=== PATIENT | male | born 1970 | race Two or more races ===

== ENCOUNTER 2021-04-03 22:07 | Inpatient (IN) | payer BC ==
[~2021-04-03] VITALS: Ht 152.4 cm; Wt 54.4 kg
[2021-04-03 22:56] LABS: BASOPHILS % 0.7 % (0.0-2.0); EOSINOPHILS % 1.3 % (0.0-5.0); HEMATOCRIT. 47.7 % (42.0-52.0); HEMOGLOBIN. 15.4 g/dL (14.0-18.0); LYMPHOCYTES % 49.5 % (20.0-50.0); MEAN CORPUSCULAR HEMOGLOBIN 27.5 pg (28.0-32.0); MONOCYTES % 9.3 % (2.0-8.0); NEUTROPHILS % 39.2 % (40.0-76.0); RED BLOOD CELL COUNT 5.61 mill/uL (4.7-6.1); RED CELL DISTRIBUTION WIDTH 14.9 % (11.6-14.6)
[2021-04-03 23:00] LABS: BG BASE EXCESS -8.9 mmol/L (-2.0-2.0); BG CARBOXYHEMOGLOBIN 0.6 % (0.5-1.5); BG DEOXYHEMOGLOBIN 5.6 % (0.0-5.0); BG FRACTION INSPIRED OXYGEN 100; BG HCO3 ACT 18.7 mmol/L (22.0-26.0); BG METHEMOGLOBIN 0.3 % (0.0-1.5); BG OXYGEN SATURATION 94.3 % (92.0-98.5); BG OXYHEMOGLOBIN 93.5 % (94.0-97.0); BG PCO2 46.7 mmHg (35.0-45.0); BG PO2 81.6 mmHg (75.0-100.0); BG SAMPLE SITE RIGHT BRACHIAL; BG TOTAL HEMOGLOBIN 14.2 g/dL (12.0-18.0); BG VENT MODE MASK - BIPAP
[2021-04-03 23:02] LABS: CHLORIDE 102 mEq/L (98-107)
[2021-04-03 23:09] LABS: D-DIMER 3.09 mg/L FEU (<0.50); INR 1.1; PROTHROMBIN TIME 11.9 sec (9.6-11.0)
[2021-04-03] MEDS ORDERED: CEFTRIAXONE 1 G PREMIX 50 ML IV SCH (23:15)
[2021-04-03] MEDS ORDERED: MORPHINE SULFATE 2 MG/ML CPJ (NOT FOR IM USE) IV SCH (23:15)
[2021-04-03] MEDS ORDERED: FENTANYL CITRATE/PF 50MCG/ML 2ML VIAL IV ONE (23:30)
[2021-04-03] MEDS ORDERED: ONDANSETRON HCL 4MG/2ML INJ IV ONE (23:30)
[2021-04-03] MEDS ORDERED: PROPOFOL 10MG/ML 100ML 100 ML IV ONE (23:30)
[2021-04-03] MEDS ORDERED: DEXT 5%/LACTATED RINGERS 1,000 ML IV ONE (23:45)
[2021-04-03 23:52] LABS: MEAN PLATELET VOLUME 9.8 fl (7.4-10.4); PLATELET 185 x1000/uL (130-400)
[2021-04-04] VITALS (21 sets, daily range): BP systolic 77–175; BP diastolic 44–84
[2021-04-04] MEDS ORDERED: AZITHROMYCIN 500 MG in DEXT 5% WATER 250 ML IV SCH
[2021-04-04 00:18] LABS: CLARITY URINE CLEAR (CLEAR); COLOR URINE YELLOW (YELLOW); KETONES URINE NEGATIVE (NEGATIVE); LEUKOCYTE ESTERASE URINE NEGATIVE (NEGATIVE); NITRITE URINE NEGATIVE (NEGATIVE); OCCULT BLOOD URINE NEGATIVE (NEGATIVE); PROTEIN URINE 2+ (NEGATIVE); SPECIFIC GRAVITY URINE 1.022 (1.005-1.030); UROBILINOGEN URINE 0.2 E.U./dL (0.2-1.0)
[2021-04-04 00:31] LABS: *AMPHETAMINES SCREEN URINE NEGATIVE (NEGATIVE); *BARBITURATES SCREEN URINE NEGATIVE (NEGATIVE); *BENZODIAZEPINES SCREEN URINE NEGATIVE (NEGATIVE); *COCAINE SCREEN URINE NEGATIVE (NEGATIVE); CANNABINOID URINE SCREEN NEGATIVE (NEGATIVE); OPIATES URINE SCREEN NEGATIVE (NEGATIVE)
[2021-04-04 00:32] LABS: METHADONE URINE SCREEN NEGATIVE (NEGATIVE); PHENCYCLIDINE URINE SCREEN NEGATIVE (NEGATIVE)
[2021-04-04] MEDS ORDERED: SODIUM CHLORIDE 0.9% 500 ML IV ONE (01:15)
[2021-04-04] MEDS ORDERED: PROPOFOL 10MG/ML 100ML 100 ML IV ONE ×3 (02:45→10:45)
[2021-04-04] MEDS ORDERED: LORAZEPAM 2MG/ML CPJ IV PRN (03:15)
[2021-04-04] MEDS ORDERED: NOREPINEPHRINE 8MG/250ML PMX 250 ML IV PRN ×2 (03:15→14:45)
[2021-04-04 04:40] LABS: BG BASE EXCESS -9.6 mmol/L (-2.0-2.0); BG CARBOXYHEMOGLOBIN 0.5 % (0.5-1.5); BG DEOXYHEMOGLOBIN 3.2 % (0.0-5.0); BG FRACTION INSPIRED OXYGEN 100; BG HCO3 ACT 17.2 mmol/L (22.0-26.0); BG METHEMOGLOBIN 0.1 % (0.0-1.5); BG OXYGEN SATURATION 96.8 % (92.0-98.5); BG OXYHEMOGLOBIN 96.2 % (94.0-97.0); BG PCO2 40.6 mmHg (35.0-45.0); BG PH 7.245 (7.350-7.450); BG PO2 104.2 mmHg (75.0-100.0); BG SAMPLE SITE RIGHT BRACHIAL; BG TOTAL HEMOGLOBIN 13.7 g/dL (12.0-18.0); BG VENT MODE VENT - AC
[2021-04-04] MEDS ORDERED: ETOMIDATE 2MG/ML 10ML VIAL IV ONE (08:03)
[2021-04-04] MEDS ORDERED: SUCCINYLCHOLINE CHLORIDE 200MG/10ML IV ONE (08:03)
[2021-04-04 11:09] LABS: BG BASE EXCESS -2.3 mmol/L (-2.0-2.0); BG CARBOXYHEMOGLOBIN 0.6 % (0.5-1.5); BG DEOXYHEMOGLOBIN 1.8 % (0.0-5.0); BG FRACTION INSPIRED OXYGEN 90; BG METHEMOGLOBIN 0.1 % (0.0-1.5); BG OXYGEN SATURATION 98.2 % (92.0-98.5); BG OXYHEMOGLOBIN 97.5 % (94.0-97.0); BG PCO2 41.3 mmHg (35.0-45.0); BG PH 7.363 (7.350-7.450); BG PO2 120.6 mmHg (75.0-100.0); BG SAMPLE SITE RIGHT RADIAL; BG TOTAL HEMOGLOBIN 14.6 g/dL (12.0-18.0); BG VENT MODE VENT - AC
[2021-04-04] MEDS ORDERED: MIDAZOLAM HCL 100 MG in SODIUM CHLORIDE 0.9% 80 ML IV PRN (11:30)
[2021-04-04] MEDS ORDERED: ACETAMINOPHEN 325MG TABLET PO PRN (11:30)
[2021-04-04] MEDS ORDERED: ONDANSETRON HCL 4MG/2ML INJ IV PRN (11:30)
[2021-04-04] MEDS ORDERED: FENTANYL CITRATE/PF 2,500 MCG in SODIUM CHLORIDE 0.9% 200 ML IV PRN ×3 (11:30→14:27)
[2021-04-04] MEDS ORDERED: DEXTROSE 50% WATER 50ML SYRINGE IV PRN (11:30)
[2021-04-04] MEDS ORDERED: MORPHINE SULFATE 2 MG/ML CPJ (NOT FOR IM USE) IV PRN (11:30)
[2021-04-04] MEDS ORDERED: LORAZEPAM 0.5MG TABLET PO PRN (11:30)
[2021-04-04] MEDS ORDERED: DOCUSATE SODIUM 100MG CAPSULE PO PRN (11:30)
[2021-04-04] MEDS ORDERED: IPRATROPIUM/ALBUTEROL 0.5-3(2.5)MG/3ML NEB NEB PRN (11:30)
[2021-04-04] MEDS ORDERED: HYDROCODONE/ACETAMINOPHEN 5/325MG TABLET PO PRN (11:30)
[2021-04-04] MEDS ORDERED: ACETAMINOPHEN 650MG SUPP PR PRN (11:30)
[2021-04-04] MEDS ORDERED: CLONIDINE 0.1MG TABLET PO PRN (11:30)
[2021-04-04] MEDS ORDERED: GUAIFENESIN 200MG/10ML SUGAR FREE UDC PO PRN (11:30)
[2021-04-04] MEDS ORDERED: DIPHENHYDRAMINE 50MG/ML VIAL IV PRN (11:30)
[2021-04-04] MEDS ORDERED: NA PHOS,M-B/NA PHOS,DI-BA ENEMA 118ML PR PRN (11:30)
[2021-04-04] MEDS ORDERED: MAGNESIUM/ALUMINUM HYDROXIDE/SIMETHICONE 30ML UDC PO PRN (11:30)
[2021-04-04] MEDS ORDERED: BLOOD SUGAR DIAGNOSTIC STRIP TEST SCH (13:00)
[2021-04-04] MEDS ORDERED: INSULIN LISPRO 100 UNITS/ML SUBCUT SCH (13:20)
[2021-04-04] MEDS ORDERED: VANCOMYCIN 1500MG in DEXTROSE 5% WATER 250ML IV SCH (13:30)
[2021-04-04] MEDS: PANTOPRAZOLE SODIUM 40 MG/VIAL IV SCH (13:55)
[2021-04-04] MEDS: DEXAMETHASONE 10 MG/ML VIAL IV SCH (13:56)
[2021-04-04] MEDS ORDERED: PIPERACILLIN/TAZOBACTAM 3.375 G in DEXT 5% WATER 100 ML IV SCH (14:00)
[2021-04-04] MEDS: MIDAZOLAM HCL 100 MG in SODIUM CHLORIDE 0.9% 80 ML IV PRN ×2 (14:23→15:45)
[2021-04-04] MEDS: IPRATROPIUM/ALBUTEROL 0.5-3(2.5)MG/3ML NEB NEB SCH ×2 (14:37→20:24)
[2021-04-04 15:41] LABS: CREATINE KINASE MB FRACTION 12.5 ng/mL (0.5-3.6)
[2021-04-04 16:45] LABS: HEMATOCRIT. 40.9 % (42.0-52.0); HEMOGLOBIN. 13.7 g/dL (14.0-18.0); MEAN CORPUSCULAR HEMOGLOBIN 27.4 pg (28.0-32.0); MEAN CORPUSCULAR VOLUME 81.8 fL (80.0-94.0); MEAN PLATELET VOLUME 9.2 fl (7.4-10.4); PLATELET 214 x1000/uL (130-400); RED CELL DISTRIBUTION WIDTH 14.3 % (11.6-14.6)
[2021-04-04 17:12] LABS: PLATELET ESTIMATE NORMAL
[2021-04-04] MEDS ORDERED: VANCOMYCIN 1 G PREMIX 200 ML IV SCH (22:00)
[2021-04-04] MEDS: PIPERACILLIN/TAZOBACTAM 3.375 G in DEXT 5% WATER 100 ML IV SCH (22:21)
[2021-04-04] MEDS: VANCOMYCIN 1 G PREMIX 200 ML IV SCH (22:22)
[2021-04-04] MEDS: NOREPINEPHRINE 8 MG in DEXTROSE 5% WATER 250 ML IV PRN (22:24)
[2021-04-05] VITALS (92 sets, daily range): BP systolic 82–156; BP diastolic 45–94
[2021-04-05] MEDS: NOREPINEPHRINE 8 MG in DEXTROSE 5% WATER 250 ML IV PRN (00:10)
[2021-04-05] MEDS: BLOOD SUGAR DIAGNOSTIC STRIP TEST SCH ×4 (00:25→20:36)
[2021-04-05] MEDS: INSULIN LISPRO 100 UNITS/ML SUBCUT SCH ×5 (00:26→20:37)
[2021-04-05 01:17] LABS: CREATINE KINASE MB FRACTION 4.3 ng/mL (0.5-3.6)
[2021-04-05] MEDS: IPRATROPIUM/ALBUTEROL 0.5-3(2.5)MG/3ML NEB NEB SCH ×4 (01:53→20:51)
[2021-04-05] MEDS: PIPERACILLIN/TAZOBACTAM 3.375 G in DEXT 5% WATER 100 ML IV SCH ×4 (02:48→20:34)
[2021-04-05] MEDS ORDERED: IOHEXOL-350 100 ML BOTTLE ONE (03:50)
[2021-04-05 05:49] LABS: CHLORIDE 110 mEq/L (98-107)
[2021-04-05 05:57] LABS: HDL CHOLESTEROL 36 mg/dL (40-59); HEMATOCRIT. 37.9 % (42.0-52.0); HEMOGLOBIN. 12.7 g/dL (14.0-18.0); LDL CHOLESTEROL 50 mg/dL (5-100); MEAN CORPUSCULAR HEMOGLOBIN 27.4 pg (28.0-32.0); MEAN CORPUSCULAR VOLUME 81.6 fL (80.0-94.0); MEAN PLATELET VOLUME 10.3 fl (7.4-10.4); PLATELET 192 x1000/uL (130-400); RED BLOOD CELL COUNT 4.64 mill/uL (4.7-6.1); RED CELL DISTRIBUTION WIDTH 14.3 % (11.6-14.6)
[2021-04-05 05:58] LABS: T4 FREE 1.17 ng/dL (0.76-1.46)
[2021-04-05] MEDS: VANCOMYCIN 1 G PREMIX 200 ML IV SCH ×2 (06:36→13:06)
[2021-04-05 08:07] LABS: BG BASE EXCESS -0.7 mmol/L (-2.0-2.0); BG CARBOXYHEMOGLOBIN 0.3 % (0.5-1.5); BG DEOXYHEMOGLOBIN 1.6 % (0.0-5.0); BG FRACTION INSPIRED OXYGEN 50; BG HCO3 ACT 20.7 mmol/L (22.0-26.0); BG METHEMOGLOBIN 0.3 % (0.0-1.5); BG OXYGEN SATURATION 98.4 % (92.0-98.5); BG OXYHEMOGLOBIN 97.8 % (94.0-97.0); BG PCO2 25.5 mmHg (35.0-45.0); BG PH 7.528 (7.350-7.450); BG PO2 152.5 mmHg (75.0-100.0); BG SAMPLE SITE RIGHT BRACHIAL; BG TOTAL HEMOGLOBIN 12.4 g/dL (12.0-18.0); BG TOTAL RESPIRATORY RATE 22 b/min; BG VENT MODE VENT - AC
[2021-04-05] MEDS: PANTOPRAZOLE SODIUM 40 MG/VIAL IV SCH (08:37)
[2021-04-05] MEDS: DEXAMETHASONE 10 MG/ML VIAL IV SCH (08:38)
[2021-04-05] MEDS: ASPIRIN 81MG EC TABLET PO SCH (08:38)
[2021-04-05] MEDS ORDERED: POTASSIUM CHLORIDE 20MEQ/PACKET PO NR (09:15)
[2021-04-05 10:48] LABS: PLATELET ESTIMATE NORMAL
[2021-04-05] MEDS ORDERED: ENOXAPARIN 100MG/ML SYR SUBCUT SCH (12:00)
[2021-04-05] MEDS: SODIUM CHLORIDE 0.45% 1,000 ML IV SCH (12:09)
[2021-04-05 13:41] LABS: BG BASE EXCESS -3.7 mmol/L (-2.0-2.0); BG CARBOXYHEMOGLOBIN 0.3 % (0.5-1.5); BG DEOXYHEMOGLOBIN 2.9 % (0.0-5.0); BG HCO3 ACT 20.3 mmol/L (22.0-26.0); BG METHEMOGLOBIN 0.3 % (0.0-1.5); BG OXYGEN SATURATION 97.1 % (92.0-98.5); BG OXYHEMOGLOBIN 96.5 % (94.0-97.0); BG PCO2 33.8 mmHg (35.0-45.0); BG PH 7.397 (7.350-7.450); BG PO2 98.9 mmHg (75.0-100.0); BG SAMPLE SITE RIGHT BRACHIAL; BG VENT MODE VENT - CPAP
[2021-04-05] MEDS: ENOXAPARIN 30MG/0.3ML SYR SUBCUT SCH ×2 (14:32→20:35)
[2021-04-05] MEDS: MIDODRINE HCL 5MG TABLET PO SCH ×2 (14:45→17:53)
[2021-04-05 16:16] LABS: BG CARBOXYHEMOGLOBIN 0.7 % (0.5-1.5); BG HCO3 ACT 22.2 mmol/L (22.0-26.0); BG METHEMOGLOBIN 0.1 % (0.0-1.5); BG OXYGEN SATURATION 92.9 % (92.0-98.5); BG OXYHEMOGLOBIN 92.2 % (94.0-97.0); BG PCO2 36.4 mmHg (35.0-45.0); BG PH 7.404 (7.350-7.450); BG PO2 66.5 mmHg (75.0-100.0); BG SAMPLE SITE RIGHT BRACHIAL; BG TOTAL HEMOGLOBIN 14.2 g/dL (12.0-18.0); BG VENT MODE COOL AEROSOL
[2021-04-05] MEDS: CLOTRIMAZOLE/BETAMETHASONE 1/0.05% CREAM 15GM TOP SCH ×2 (18:27→20:36)
[2021-04-05 19:21] LABS: BG DEOXYHEMOGLOBIN 3.6 % (0.0-5.0); BG FRACTION INSPIRED OXYGEN 55; BG HCO3 ACT 21.9 mmol/L (22.0-26.0); BG METHEMOGLOBIN 0.3 % (0.0-1.5); BG OXYGEN SATURATION 96.4 % (92.0-98.5); BG OXYHEMOGLOBIN 96.1 % (94.0-97.0); BG PCO2 34.8 mmHg (35.0-45.0); BG PH 7.417 (7.350-7.450); BG PO2 87.5 mmHg (75.0-100.0); BG SAMPLE SITE RIGHT RADIAL; BG TOTAL HEMOGLOBIN 13.1 g/dL (12.0-18.0); BG VENT MODE MASK - BIPAP
[2021-04-05] MEDS: VANCOMYCIN 1500MG in DEXTROSE 5% WATER 250ML IV SCH (22:19)
[2021-04-06] VITALS (98 sets, daily range): BP systolic 81–141; BP diastolic 43–84
[2021-04-06] MEDS: PIPERACILLIN/TAZOBACTAM 3.375 G in DEXT 5% WATER 100 ML IV SCH ×4 (03:00→20:48)
[2021-04-06 05:49] LABS: CHLORIDE 107 mEq/L (98-107)
[2021-04-06 05:56] LABS: TOTAL IRON BINDING CAPACITY 265 ug/dL (250-450)
[2021-04-06 06:09] LABS: HEMATOCRIT. 34.7 % (42.0-52.0); HEMOGLOBIN. 11.8 g/dL (14.0-18.0); MEAN CORPUSCULAR HEMOGLOBIN 27.5 pg (28.0-32.0); MEAN CORPUSCULAR VOLUME 80.8 fL (80.0-94.0); MEAN PLATELET VOLUME 10.7 fl (7.4-10.4); PLATELET 151 x1000/uL (130-400); RED CELL DISTRIBUTION WIDTH 14.5 % (11.6-14.6)
[2021-04-06] MEDS: BLOOD SUGAR DIAGNOSTIC STRIP TEST SCH ×4 (06:11→22:00)
[2021-04-06] MEDS: VANCOMYCIN 1500MG in DEXTROSE 5% WATER 250ML IV SCH (06:11)
[2021-04-06] MEDS: INSULIN LISPRO 100 UNITS/ML SUBCUT SCH ×4 (06:11→21:00)
[2021-04-06 06:24] LABS: VITAMIN B12 SERUM 362 pg/mL (211-911)
[2021-04-06] MEDS: IPRATROPIUM/ALBUTEROL 0.5-3(2.5)MG/3ML NEB NEB SCH ×3 (08:13→21:04)
[2021-04-06] MEDS: ASPIRIN 81MG EC TABLET PO SCH (09:00)
[2021-04-06] MEDS: MIDODRINE HCL 5MG TABLET PO SCH ×3 (09:00→16:47)
[2021-04-06 09:07] LABS: BG BASE EXCESS -1.5 mmol/L (-2.0-2.0); BG DEOXYHEMOGLOBIN 1.1 % (0.0-5.0); BG FRACTION INSPIRED OXYGEN 55; BG METHEMOGLOBIN 0.3 % (0.0-1.5); BG OXYGEN SATURATION 98.9 % (92.0-98.5); BG OXYHEMOGLOBIN 98.6 % (94.0-97.0); BG PCO2 33.1 mmHg (35.0-45.0); BG PH 7.441 (7.350-7.450); BG SAMPLE SITE LEFT BRACHIAL; BG TOTAL HEMOGLOBIN 11.9 g/dL (12.0-18.0); BG TOTAL RESPIRATORY RATE 36 b/min; BG VENT MODE MASK - BIPAP
[2021-04-06] MEDS: PANTOPRAZOLE SODIUM 40 MG/VIAL IV SCH (09:27)
[2021-04-06] MEDS: CLOTRIMAZOLE/BETAMETHASONE 1/0.05% CREAM 15GM TOP SCH (09:27)
[2021-04-06] MEDS: DEXAMETHASONE 10 MG/ML VIAL IV SCH (09:27)
[2021-04-06] MEDS: SODIUM CHLORIDE 0.45% 1,000 ML IV SCH ×2 (09:28→23:07)
[2021-04-06] MEDS: ENOXAPARIN 30MG/0.3ML SYR SUBCUT SCH (09:28)
[2021-04-06] MEDS ORDERED: POTASSIUM CHLORIDE 20MEQ TABLET SR PO NR (09:30)
[2021-04-06] MEDS: FERROUS SULFATE 325MG TABLET PO SCH ×2 (11:01→16:47)
[2021-04-06] MEDS: VANCOMYCIN 1 G PREMIX 200 ML IV SCH ×2 (14:54→22:52)
[2021-04-06 15:58] LABS: PLATELET ESTIMATE NORMAL
[2021-04-06] MEDS: METHYLPREDNISOLONE SOD SUCC 40 MG/ML VIAL IV SCH (16:47)
[2021-04-06] MEDS: NOREPINEPHRINE 8 MG in DEXTROSE 5% WATER 250 ML IV PRN (16:54)
[2021-04-06] MEDS: ENOXAPARIN 60MG/0.6ML SYR SUBCUT SCH (18:45)
[2021-04-07] VITALS (85 sets, daily range): BP systolic 57–146; BP diastolic 27–80
[2021-04-07] MEDS: ACETYLCYSTEINE 100MG/ML 10% VIAL 4ML INH SCH ×2 (00:54→08:11)
[2021-04-07] MEDS: IPRATROPIUM/ALBUTEROL 0.5-3(2.5)MG/3ML NEB NEB SCH ×2 (00:55→08:11)
[2021-04-07] MEDS: METHYLPREDNISOLONE SOD SUCC 40 MG/ML VIAL IV SCH (03:09)
[2021-04-07] MEDS: PIPERACILLIN/TAZOBACTAM 3.375 G in DEXT 5% WATER 100 ML IV SCH ×4 (03:10→21:54)
[2021-04-07] MEDS: ENOXAPARIN 60MG/0.6ML SYR SUBCUT SCH ×2 (05:38→17:21)
[2021-04-07] MEDS: VANCOMYCIN 1 G PREMIX 200 ML IV SCH ×2 (05:39→13:48)
[2021-04-07 05:42] LABS: HEMATOCRIT. 33.7 % (42.0-52.0); HEMOGLOBIN. 11.2 g/dL (14.0-18.0); MEAN CORPUSCULAR HEMOGLOBIN 27.1 pg (28.0-32.0); MEAN CORPUSCULAR VOLUME 81.4 fL (80.0-94.0); MEAN PLATELET VOLUME 10.5 fl (7.4-10.4); PLATELET 140 x1000/uL (130-400); RED BLOOD CELL COUNT 4.14 mill/uL (4.7-6.1); RED CELL DISTRIBUTION WIDTH 14.5 % (11.6-14.6)
[2021-04-07 05:53] LABS: CHLORIDE 105 mEq/L (98-107)
[2021-04-07] MEDS: INSULIN LISPRO 100 UNITS/ML SUBCUT SCH ×4 (06:32→21:00)
[2021-04-07] MEDS: BLOOD SUGAR DIAGNOSTIC STRIP TEST SCH ×4 (06:40→21:53)
[2021-04-07 06:57] LABS: PLATELET ESTIMATE NORMAL
[2021-04-07 07:54] LABS: BG BASE EXCESS -1.3 mmol/L (-2.0-2.0); BG CARBOXYHEMOGLOBIN 0.3 % (0.5-1.5); BG DEOXYHEMOGLOBIN 2.3 % (0.0-5.0); BG FRACTION INSPIRED OXYGEN 28; BG HCO3 ACT 22.6 mmol/L (22.0-26.0); BG METHEMOGLOBIN 0.3 % (0.0-1.5); BG OXYGEN SATURATION 97.7 % (92.0-98.5); BG OXYHEMOGLOBIN 97.1 % (94.0-97.0); BG PCO2 35.1 mmHg (35.0-45.0); BG PH 7.427 (7.350-7.450); BG PO2 109.5 mmHg (75.0-100.0); BG SAMPLE SITE RIGHT BRACHIAL; BG TOTAL HEMOGLOBIN 11.7 g/dL (12.0-18.0); BG VENT MODE NASAL CANNULA
[2021-04-07] MEDS: ASPIRIN 81MG EC TABLET PO SCH (08:22)
[2021-04-07] MEDS: MIDODRINE HCL 5MG TABLET PO SCH ×3 (08:22→17:21)
[2021-04-07] MEDS: PANTOPRAZOLE SODIUM 40 MG/VIAL IV SCH (08:22)
[2021-04-07] MEDS: FERROUS SULFATE 325MG TABLET PO SCH ×2 (08:22→17:20)
[2021-04-07] MEDS ORDERED: ENOXAPARIN 40MG/0.4ML SYR SUBCUT SCH (09:00)
[2021-04-07] MEDS ORDERED: VANCOMYCIN 750 MG PREMIX 150 ML IV SCH (18:00)
[2021-04-07] MEDS: SODIUM CHLORIDE 0.45% 1,000 ML IV SCH (21:53)
[2021-04-08] VITALS (17 sets, daily range): BP systolic 85–127; BP diastolic 44–78
[2021-04-08] MEDS: PIPERACILLIN/TAZOBACTAM 3.375 G in DEXT 5% WATER 100 ML IV SCH ×4 (03:07→20:50)
[2021-04-08 04:50] LABS: HEMATOCRIT. 32.2 % (42.0-52.0); HEMOGLOBIN. 10.7 g/dL (14.0-18.0); MEAN CORPUSCULAR HEMOGLOBIN 27.2 pg (28.0-32.0); MEAN CORPUSCULAR VOLUME 82.1 fL (80.0-94.0); MEAN PLATELET VOLUME 10.4 fl (7.4-10.4); PLATELET 137 x1000/uL (130-400); RED BLOOD CELL COUNT 3.92 mill/uL (4.7-6.1); RED CELL DISTRIBUTION WIDTH 14.6 % (11.6-14.6)
[2021-04-08 04:55] LABS: CHLORIDE 107 mEq/L (98-107)
[2021-04-08] MEDS: ENOXAPARIN 60MG/0.6ML SYR SUBCUT SCH ×2 (05:28→17:58)
[2021-04-08] MEDS: BLOOD SUGAR DIAGNOSTIC STRIP TEST SCH ×5 (05:30→20:33)
[2021-04-08] MEDS: INSULIN LISPRO 100 UNITS/ML SUBCUT SCH ×4 (06:28→20:50)
[2021-04-08] MEDS: ASPIRIN 81MG EC TABLET PO SCH (08:26)
[2021-04-08] MEDS: MIDODRINE HCL 5MG TABLET PO SCH ×3 (08:26→16:59)
[2021-04-08] MEDS: FERROUS SULFATE 325MG TABLET PO SCH ×2 (08:26→16:59)
[2021-04-08] MEDS: METHYLPREDNISOLONE SOD SUCC 40 MG/ML VIAL IV SCH (08:27)
[2021-04-08] MEDS: PANTOPRAZOLE SODIUM 40 MG/VIAL IV SCH (08:27)
[2021-04-08 10:04] LABS: NUCLEATED RED BLOOD CELLS 1 /100 WBC; PLATELET ESTIMATE NORMAL
[2021-04-08 15:34] LABS: BG BASE EXCESS -0.9 mmol/L (-2.0-2.0); BG CARBOXYHEMOGLOBIN 0.4 % (0.5-1.5); BG DEOXYHEMOGLOBIN 7.8 % (0.0-5.0); BG HCO3 ACT 23.8 mmol/L (22.0-26.0); BG OXYGEN SATURATION 92.2 % (92.0-98.5); BG OXYHEMOGLOBIN 91.8 % (94.0-97.0); BG PCO2 39.6 mmHg (35.0-45.0); BG PH 7.396 (7.350-7.450); BG PO2 63.6 mmHg (75.0-100.0); BG SAMPLE SITE RIGHT RADIAL; BG TOTAL HEMOGLOBIN 12.2 g/dL (12.0-18.0); BG VENT MODE ROOM AIR
[2021-04-09 00:24] VITALS: BP 98/50
[2021-04-09] MEDS: PIPERACILLIN/TAZOBACTAM 3.375 G in DEXT 5% WATER 100 ML IV SCH ×3 (03:24→16:15)
[2021-04-09 04:30] VITALS: BP 98/41
[2021-04-09] MEDS: ENOXAPARIN 60MG/0.6ML SYR SUBCUT SCH ×2 (05:42→16:59)
[2021-04-09] MEDS: BLOOD SUGAR DIAGNOSTIC STRIP TEST SCH ×3 (06:26→16:58)
[2021-04-09 07:41] LABS: HEMATOCRIT. 33.2 % (42.0-52.0); HEMOGLOBIN. 11.1 g/dL (14.0-18.0); MEAN CORPUSCULAR HEMOGLOBIN 27.3 pg (28.0-32.0); MEAN CORPUSCULAR VOLUME 81.3 fL (80.0-94.0); MEAN PLATELET VOLUME 10.8 fl (7.4-10.4); PLATELET 154 x1000/uL (130-400); RED BLOOD CELL COUNT 4.08 mill/uL (4.7-6.1); RED CELL DISTRIBUTION WIDTH 14.3 % (11.6-14.6)
[2021-04-09 07:46] LABS: CHLORIDE 106 mEq/L (98-107)
[2021-04-09] MEDS: INSULIN LISPRO 100 UNITS/ML SUBCUT SCH ×3 (07:50→17:14)
[2021-04-09 08:00] VITALS: BP 97/51
[2021-04-09] MEDS: PANTOPRAZOLE SODIUM 40 MG/VIAL IV SCH (08:24)
[2021-04-09] MEDS: METHYLPREDNISOLONE SOD SUCC 40 MG/ML VIAL IV SCH (08:24)
[2021-04-09] MEDS: FERROUS SULFATE 325MG TABLET PO SCH ×2 (08:25→16:58)
[2021-04-09] MEDS: MIDODRINE HCL 5MG TABLET PO SCH ×3 (08:25→16:59)
[2021-04-09] MEDS: ASPIRIN 81MG EC TABLET PO SCH (08:25)
[2021-04-09 12:00] VITALS: BP 101/49
[2021-04-09 14:43] LABS: PLATELET ESTIMATE NORMAL
[2021-04-09 16:00] VITALS: BP 91/47
[2021-04-09 18:53] VITALS: BP 91/47
== END 2021-04-09 20:15 | disposition home or self-care (01) | DRG 871 ==
LOC: ER 22:07 → EDBEDREQ 22:28 → MICUNO 04-04 00:13 → EDBEDREQTM 04-04 00:27 → EDBEDREQ 04-04 00:27 → EDBEDREQDT 04-04 00:27 → EDBEDREQSVC 04-04 00:27 → SUPCPDRO 04-04 11:17 → ENRESERV 04-04 15:28 → MICUNO 04-05 14:41 → 6WST 04-08 11:49
PROVIDERS: ADMIT Internal Medicine; ATTEND Internal Medicine
PROC: 5A09357 Assistance with Respiratory Ventilation, Less than 24 Consecutive Hours, Continuous Positive Airway Pressure (ICD-10-PCS; 2021-04-03)
PROC: 5A1945Z Respiratory Ventilation, 24-96 Consecutive Hours (ICD-10-PCS; principal; 2021-04-04)
PROC: 02H633Z Insertion of Infusion Device into Right Atrium, Percutaneous Approach (ICD-10-PCS; 2021-04-04)
PROC: B548ZZA Ultrasonography of Superior Vena Cava, Guidance (ICD-10-PCS; 2021-04-04)
PROC: 0BH17EZ Insertion of Endotracheal Airway into Trachea, Via Natural or Artificial Opening (ICD-10-PCS; 2021-04-04)
PROC: 5A09357 Assistance with Respiratory Ventilation, Less than 24 Consecutive Hours, Continuous Positive Airway Pressure (ICD-10-PCS; 2021-04-05)
DX: A41.9 Sepsis, unspecified organism (principal); J69.0 Pneumonitis due to inhalation of food and vomit; I21.4 Non-ST elevation (NSTEMI) myocardial infarction; J96.01 Acute respiratory failure with hypoxia; I50.33 Acute on chronic diastolic (congestive) heart failure; E87.2 Acidosis; E87.1 Hypo-osmolality and hyponatremia; N43.3 Hydrocele, unspecified; E87.6 Hypokalemia; E83.51 Hypocalcemia; E80.6 Other disorders of bilirubin metabolism; Z60.2 Problems related to living alone; D50.9 Iron deficiency anemia, unspecified; I35.0 Nonrheumatic aortic (valve) stenosis; E11.65 Type 2 diabetes mellitus with hyperglycemia; F10.21 Alcohol dependence, in remission; Z20.822 Contact with and (suspected) exposure to COVID-19; Z87.891 Personal history of nicotine dependence; Z78.1 Physical restraint status; Z79.899 Other long term (current) drug therapy; Z79.82 Long term (current) use of aspirin; Z85.71 Personal history of Hodgkin lymphoma; Z90.81 Acquired absence of spleen; Z92.3 Personal history of irradiation; Z92.21 Personal history of antineoplastic chemotherapy
CPT/HCPCS: 36415; 36600; 71045; 71275; 74176; 76700; 76870; 76937; 80048; 80053; 80061; 80202; 80305; 81003; 82375; 82550; 82553; 82607; 82805; 82962; 83036; 83540; 83550; 83605; 83880; 84145; 84153; 84439; 84443; 84484; 85025; 85044; 85379; 86850; 86900; 87070; 87426; 92610; 93005; 93306; 93970; 93976; 94002; 94003; 94640; 94660; 97110; 97163; 97530; 99291; A6261; C1725; C9113; J0330; J0456; J0696; J1100; J1650; J1815; J2060; J2250; J2270; J2405; J2543; J2704; J2920; J3010; J3370; J3490; J7040; J7050; J7060; J7121; J7608; Q9967; U0003; U0005; A4315; G0103

== ENCOUNTER 2023-03-01 07:59 | Inpatient (IN) | payer BC, OTHER ==
[~2023-03-01] VITALS: Ht 160 cm; Wt 50.0 kg
[~2023-03-01 07:59] MED LIST: ASPI-1497 MT; BLOO1KIT74 TP; FLAS1EAC2 TP; LANC1COM2 MC; METF-414 MT
[2023-03-01] MEDS ORDERED: METHYLPREDNISOLONE SOD SUCC 125 MG/2 ML VIAL IV STA (08:01)
[2023-03-01] MEDS ORDERED: MAGNESIUM 2 G PREMIX 50 ML IV STA (08:01)
[2023-03-01] MEDS ORDERED: ALBUTEROL (0.083%) 2.5MG/3ML NEB HHN STA (08:01)
[2023-03-01] MEDS ORDERED: IPRATROPIUM BROMIDE (0.02%) 0.5MG/2.5ML NEB HHN STA (08:01)
[2023-03-01 08:48] LABS: EOSINOPHILS % 0.8 % (0.0-5.0); HEMATOCRIT. 42.6 % (42.0-52.0); HEMOGLOBIN. 14.1 g/dL (14.0-18.0); LYMPHOCYTES % 23.1 % (20.0-50.0); MEAN CORPUSCULAR HEMOGLOBIN 28.5 pg (28.0-32.0); MEAN CORPUSCULAR VOLUME 86.1 fL (80.0-94.0); MEAN PLATELET VOLUME 10.5 fl (7.4-10.4); MONOCYTES % 8.8 % (2.0-8.0); NEUTROPHILS % 66.3 % (40.0-76.0); PLATELET 197 x1000/uL (130-400); RED BLOOD CELL COUNT 4.94 mill/uL (4.7-6.1); RED CELL DISTRIBUTION WIDTH 14.9 % (11.6-14.6)
[2023-03-01 08:55] LABS: BG BASE EXCESS -0.9 mmol/L (-2.0-2.0); BG CARBOXYHEMOGLOBIN 1.3 % (0.5-1.5); BG DEOXYHEMOGLOBIN 6.6 % (0.0-5.0); BG FRACTION INSPIRED OXYGEN 21; BG HCO3 ACT 23.6 mmol/L (22.0-26.0); BG METHEMOGLOBIN 0.3 % (0.0-1.5); BG OXYGEN SATURATION 93.3 % (92.0-98.5); BG OXYHEMOGLOBIN 91.8 % (94.0-97.0); BG PCO2 38.6 mmHg (35.0-45.0); BG PH 7.404 (7.350-7.450); BG SAMPLE SITE RIGHT BRACHIAL; BG TOTAL HEMOGLOBIN 14.1 g/dL (12.0-18.0); BG VENT MODE ROOM AIR
[2023-03-01 09:05] LABS: CHLORIDE 103 mEq/L (98-107)
[2023-03-01] MEDS ORDERED: AZITHROMYCIN 500MG/250ML 250 ML IV ONE (09:15)
[2023-03-01] MEDS ORDERED: CEFTRIAXONE 1GM PREMIX 50 ML IV ONE (09:15)
[2023-03-01] MEDS ORDERED: IPRATROPIUM BROMIDE (0.02%) 0.5MG/2.5ML NEB ONE (10:05)
[2023-03-01] MEDS ORDERED: ENALAPRIL 2.5MG/2ML VIAL 2ML IV ONE (10:15)
[2023-03-01] MEDS ORDERED: ENALAPRIL 1.25MG/ML VIAL 1ML IV NR (10:15)
[2023-03-01] MEDS ORDERED: FUROSEMIDE 40MG/4ML VIAL IVP ONE (10:15)
[2023-03-01] MEDS ORDERED: CEFTRIAXONE 1GM PREMIX 50 ML IV NR (12:00)
[2023-03-01] MEDS ORDERED: IPRATROPIUM/ALBUTEROL 0.5-3(2.5)MG/3ML NEB HHN PRN (12:30)
[2023-03-01] MEDS ORDERED: LORAZEPAM 0.5MG TABLET PO PRN (12:30)
[2023-03-01] MEDS ORDERED: DEXTROSE 50% WATER 50ML SYRINGE IV PRN ×3 (12:30→19:45)
[2023-03-01] MEDS ORDERED: BLOOD SUGAR DIAGNOSTIC STRIP TEST SCH (13:00)
[2023-03-01] MEDS ORDERED: ASPIRIN 81MG TABLET PO NR (13:00)
[2023-03-01] MEDS: SPIRONOLACTONE 25MG TABLET PO SCH (14:27)
[2023-03-01] MEDS: BLOOD SUGAR DIAGNOSTIC STRIP TEST SCH ×3 (14:28→21:20)
[2023-03-01] MEDS: THIAMINE HCL 100MG TABLET PO SCH (14:28)
[2023-03-01] MEDS: MULTIVITAMINS,THER W-MINERALS TABLET PO SCH (14:28)
[2023-03-01] MEDS: LISINOPRIL 10MG TABLET PO SCH (14:28)
[2023-03-01] MEDS: FOLIC ACID 1MG TABLET PO SCH (14:28)
[2023-03-01] MEDS: ENOXAPARIN 40MG/0.4ML SYR SUBCUT SCH (14:29)
[2023-03-01 16:15] LABS: CREATINE KINASE MB FRACTION 2.8 ng/mL (0.5-3.6)
[2023-03-01] MEDS: FUROSEMIDE 40MG/4ML VIAL IV SCH (17:48)
[2023-03-01] MEDS: IPRATROPIUM/ALBUTEROL 0.5-3(2.5)MG/3ML NEB HHN SCH (20:48)
[2023-03-01] MEDS ORDERED: FAMOTIDINE 20MG TABLET PO SCH (21:00)
[2023-03-01] MEDS: INSULIN LISPRO 100 UNITS/ML SUBCUT SCH (21:00)
[2023-03-01] MEDS ORDERED: CARVEDILOL 3.125 MG TABLET PO SCH (21:00)
[2023-03-01] MEDS ORDERED: CARVEDILOL 6.25 MG TABLET PO SCH (21:03)
[2023-03-01 21:12] LABS: CREATINE KINASE MB FRACTION 2.6 ng/mL (0.5-3.6)
[2023-03-01] MEDS: FAMOTIDINE 20MG TABLET PO SCH (21:20)
[2023-03-01 21:26] LABS: CLARITY URINE CLEAR (CLEAR); COLOR URINE YELLOW (YELLOW); KETONES URINE NEGATIVE (NEGATIVE); LEUKOCYTE ESTERASE URINE NEGATIVE (NEGATIVE); NITRITE URINE NEGATIVE (NEGATIVE); OCCULT BLOOD URINE NEGATIVE (NEGATIVE); PROTEIN URINE NEGATIVE (NEGATIVE); SPECIFIC GRAVITY URINE 1.008 (1.005-1.030); UROBILINOGEN URINE 0.2 E.U./dL (0.2-1.0)
[2023-03-01 21:39] LABS: *AMPHETAMINES SCREEN URINE NEGATIVE (NEGATIVE); *BARBITURATES SCREEN URINE NEGATIVE (NEGATIVE); *BENZODIAZEPINES SCREEN URINE NEGATIVE (NEGATIVE); *COCAINE SCREEN URINE NEGATIVE (NEGATIVE); CANNABINOID URINE SCREEN NEGATIVE (NEGATIVE); METHADONE URINE SCREEN NEGATIVE (NEGATIVE); OPIATES URINE SCREEN NEGATIVE (NEGATIVE); PHENCYCLIDINE URINE SCREEN NEGATIVE (NEGATIVE)
[2023-03-02] MEDS: IPRATROPIUM/ALBUTEROL 0.5-3(2.5)MG/3ML NEB HHN SCH ×2 (00:45→21:15)
[2023-03-02 04:15] LABS: BASOPHILS % 0.4 % (0.0-2.0); EOSINOPHILS % 0.1 % (0.0-5.0); HEMATOCRIT. 41.6 % (42.0-52.0); LYMPHOCYTES % 7.9 % (20.0-50.0); MEAN CORPUSCULAR HEMOGLOBIN 28.4 pg (28.0-32.0); MEAN CORPUSCULAR VOLUME 84.5 fL (80.0-94.0); MEAN PLATELET VOLUME 9.2 fl (7.4-10.4); MONOCYTES % 4.6 % (2.0-8.0); PLATELET 191 x1000/uL (130-400); RED BLOOD CELL COUNT 4.92 mill/uL (4.7-6.1); RED CELL DISTRIBUTION WIDTH 15.1 % (11.6-14.6)
[2023-03-02 04:32] LABS: CHLORIDE 102 mEq/L (98-107)
[2023-03-02 04:48] LABS: HDL CHOLESTEROL 36 mg/dL (40-59); LDL CHOLESTEROL 79 mg/dL (5-100); T4 FREE 1.19 ng/dL (0.76-1.46)
[2023-03-02 05:15] VITALS: BP 115/61
[2023-03-02 05:23] VITALS: BP 115/61
[2023-03-02] MEDS ORDERED: FURO20TA4 MT (05:26)
[2023-03-02] MEDS ORDERED: CARV3.1242 MT (05:26)
[2023-03-02] MEDS: FUROSEMIDE 40MG/4ML VIAL IV SCH ×2 (05:50→18:00)
[2023-03-02] MEDS: BLOOD SUGAR DIAGNOSTIC STRIP TEST SCH ×4 (06:35→20:25)
[2023-03-02] MEDS: INSULIN LISPRO 100 UNITS/ML SUBCUT SCH ×4 (07:52→20:25)
[2023-03-02 08:00] VITALS: BP_SYST 120; BP_DIAS 50; BP_DIAS 57
[2023-03-02] MEDS: THIAMINE HCL 100MG TABLET PO SCH (08:40)
[2023-03-02] MEDS: MULTIVITAMINS,THER W-MINERALS TABLET PO SCH (08:40)
[2023-03-02] MEDS: SPIRONOLACTONE 25MG TABLET PO SCH (08:41)
[2023-03-02] MEDS: FAMOTIDINE 20MG TABLET PO SCH ×2 (08:41→21:11)
[2023-03-02] MEDS: FOLIC ACID 1MG TABLET PO SCH (08:41)
[2023-03-02] MEDS: LISINOPRIL 10MG TABLET PO SCH (08:42)
[2023-03-02] MEDS ORDERED: AZITHROMYCIN 500MG/250ML 250 ML IV SCH (09:00)
[2023-03-02] MEDS ORDERED: AZITHROMYCIN 500MG in DEXTROSE 5% WATER 250ML IV SCH (11:00)
[2023-03-02 12:00] VITALS: BP 98/52
[2023-03-02] MEDS ORDERED: VANCOMYCIN 1G PREMIX 200 ML IV NR (12:00)
[2023-03-02] MEDS: ENOXAPARIN 40MG/0.4ML SYR SUBCUT SCH (12:46)
[2023-03-02] MEDS: PIPERACILLIN/TAZOBACTAM 3.375 G in DEXTROSE 5% WATER 50 ML IV SCH ×2 (14:38→21:11)
[2023-03-02 16:00] VITALS: BP 94/50
[2023-03-02 20:00] VITALS: BP 94/47
[2023-03-02] MEDS ORDERED: CARVEDILOL 3.125 MG TABLET PO SCH (21:00)
[2023-03-03] VITALS: BP 89/49
[2023-03-03] MEDS: VANCOMYCIN 500MG PREMIX 100 ML IV SCH ×4 (00:20→23:34)
[2023-03-03] MEDS: IPRATROPIUM/ALBUTEROL 0.5-3(2.5)MG/3ML NEB HHN SCH ×4 (01:28→21:33)
[2023-03-03 04:00] VITALS: BP 97/47
[2023-03-03 05:45] LABS: BASOPHILS % 0.6 % (0.0-2.0); EOSINOPHILS % 0.1 % (0.0-5.0); HEMATOCRIT. 39.1 % (42.0-52.0); HEMOGLOBIN. 12.9 g/dL (14.0-18.0); LYMPHOCYTES % 10.2 % (20.0-50.0); MEAN CORPUSCULAR HEMOGLOBIN 28.1 pg (28.0-32.0); MEAN CORPUSCULAR VOLUME 85.1 fL (80.0-94.0); MEAN PLATELET VOLUME 10.7 fl (7.4-10.4); MONOCYTES % 8.5 % (2.0-8.0); NEUTROPHILS % 80.6 % (40.0-76.0); PLATELET 137 x1000/uL (130-400); RED BLOOD CELL COUNT 4.59 mill/uL (4.7-6.1); RED CELL DISTRIBUTION WIDTH 14.8 % (11.6-14.6)
[2023-03-03] MEDS: PIPERACILLIN/TAZOBACTAM 3.375 G in DEXTROSE 5% WATER 50 ML IV SCH ×3 (05:47→21:03)
[2023-03-03] MEDS: FUROSEMIDE 40MG/4ML VIAL IV SCH ×2 (05:47→18:00)
[2023-03-03 06:08] LABS: CHLORIDE 101 mEq/L (98-107)
[2023-03-03] MEDS: BLOOD SUGAR DIAGNOSTIC STRIP TEST SCH ×4 (06:55→20:15)
[2023-03-03] MEDS: INSULIN LISPRO 100 UNITS/ML SUBCUT SCH ×4 (07:44→21:03)
[2023-03-03 08:02] VITALS: BP 95/49
[2023-03-03] MEDS: LISINOPRIL 10MG TABLET PO SCH (09:00)
[2023-03-03] MEDS: FOLIC ACID 1MG TABLET PO SCH (09:14)
[2023-03-03] MEDS: MULTIVITAMINS,THER W-MINERALS TABLET PO SCH (09:14)
[2023-03-03] MEDS: FAMOTIDINE 20MG TABLET PO SCH ×2 (09:14→21:03)
[2023-03-03] MEDS: SPIRONOLACTONE 25MG TABLET PO SCH (09:14)
[2023-03-03] MEDS: THIAMINE HCL 100MG TABLET PO SCH (09:14)
[2023-03-03 12:00] VITALS: BP 109/59
[2023-03-03] MEDS: ENOXAPARIN 40MG/0.4ML SYR SUBCUT SCH (12:42)
[2023-03-03 16:00] VITALS: BP 88/43
[2023-03-03 19:59] VITALS: BP 123/54
[2023-03-04] VITALS (7 sets, daily range): BP systolic 93–110; BP diastolic 47–68
[2023-03-04] MEDS: IPRATROPIUM/ALBUTEROL 0.5-3(2.5)MG/3ML NEB HHN SCH ×4 (01:53→21:02)
[2023-03-04] MEDS: FUROSEMIDE 40MG/4ML VIAL IV SCH ×2 (05:31→17:23)
[2023-03-04] MEDS: PIPERACILLIN/TAZOBACTAM 3.375 G in DEXTROSE 5% WATER 50 ML IV SCH ×2 (05:32→13:02)
[2023-03-04 06:34] LABS: CHLORIDE 98 mEq/L (98-107)
[2023-03-04 06:42] LABS: VANCOMYCIN TROUGH 21.5 ug/mL (5.0-10.0)
[2023-03-04 07:06] LABS: BASOPHILS % 0.9 % (0.0-2.0); EOSINOPHILS % 1.4 % (0.0-5.0); HEMATOCRIT. 40.4 % (42.0-52.0); HEMOGLOBIN. 13.5 g/dL (14.0-18.0); LYMPHOCYTES % 21.2 % (20.0-50.0); MEAN CORPUSCULAR HEMOGLOBIN 28.3 pg (28.0-32.0); MEAN CORPUSCULAR VOLUME 84.9 fL (80.0-94.0); MEAN PLATELET VOLUME 11.1 fl (7.4-10.4); NEUTROPHILS % 65.5 % (40.0-76.0); PLATELET 149 x1000/uL (130-400); RED BLOOD CELL COUNT 4.76 mill/uL (4.7-6.1); RED CELL DISTRIBUTION WIDTH 14.8 % (11.6-14.6)
[2023-03-04] MEDS: BLOOD SUGAR DIAGNOSTIC STRIP TEST SCH ×4 (07:40→21:00)
[2023-03-04] MEDS: INSULIN LISPRO 100 UNITS/ML SUBCUT SCH ×4 (08:10→21:49)
[2023-03-04] MEDS: LISINOPRIL 10MG TABLET PO SCH (09:00)
[2023-03-04] MEDS: SPIRONOLACTONE 25MG TABLET PO SCH (09:04)
[2023-03-04] MEDS: VANCOMYCIN 500MG PREMIX 100 ML IV SCH (09:04)
[2023-03-04] MEDS: FAMOTIDINE 20MG TABLET PO SCH ×2 (09:04→21:49)
[2023-03-04] MEDS: FOLIC ACID 1MG TABLET PO SCH (09:04)
[2023-03-04] MEDS: THIAMINE HCL 100MG TABLET PO SCH (09:04)
[2023-03-04] MEDS: MULTIVITAMINS,THER W-MINERALS TABLET PO SCH (09:05)
[2023-03-04] MEDS: ENOXAPARIN 40MG/0.4ML SYR SUBCUT SCH (12:53)
[2023-03-04] MEDS ORDERED: VANCOMYCIN 500MG PREMIX 100 ML IV SCH (20:00)
[2023-03-05] VITALS: BP 95/46
[2023-03-05] MEDS: IPRATROPIUM/ALBUTEROL 0.5-3(2.5)MG/3ML NEB HHN SCH ×2 (02:13→09:20)
[2023-03-05 04:00] VITALS: BP 93/41
[2023-03-05] MEDS: FUROSEMIDE 40MG/4ML VIAL IV SCH (05:13)
[2023-03-05 07:39] LABS: CHLORIDE 97 mEq/L (98-107)
[2023-03-05] MEDS: BLOOD SUGAR DIAGNOSTIC STRIP TEST SCH (07:40)
[2023-03-05] MEDS: INSULIN LISPRO 100 UNITS/ML SUBCUT SCH (08:10)
[2023-03-05 08:50] LABS: BASOPHILS % 1.1 % (0.0-2.0); HEMATOCRIT. 44.1 % (42.0-52.0); HEMOGLOBIN. 14.7 g/dL (14.0-18.0); LYMPHOCYTES % 19.1 % (20.0-50.0); MEAN CORPUSCULAR HEMOGLOBIN 28.4 pg (28.0-32.0); MEAN CORPUSCULAR VOLUME 85.1 fL (80.0-94.0); MEAN PLATELET VOLUME 11.1 fl (7.4-10.4); MONOCYTES % 14.5 % (2.0-8.0); NEUTROPHILS % 64.3 % (40.0-76.0); PLATELET 165 x1000/uL (130-400); RED BLOOD CELL COUNT 5.18 mill/uL (4.7-6.1); RED CELL DISTRIBUTION WIDTH 14.7 % (11.6-14.6)
[2023-03-05] MEDS: SPIRONOLACTONE 25MG TABLET PO SCH (09:00)
[2023-03-05] MEDS: THIAMINE HCL 100MG TABLET PO SCH (09:46)
[2023-03-05] MEDS: FAMOTIDINE 20MG TABLET PO SCH (09:46)
[2023-03-05] MEDS: FOLIC ACID 1MG TABLET PO SCH (09:46)
[2023-03-05] MEDS: MULTIVITAMINS,THER W-MINERALS TABLET PO SCH (09:46)
[2023-03-05] MEDS ORDERED: SPIR25TA MT (10:26)
[2023-03-05] MEDS ORDERED: FURO-151 MT (10:26)
[2023-03-05 11:26] VITALS: BP 102/60
== END 2023-03-05 12:20 | disposition home or self-care (01) | DRG 291 ==
LOC: ER 07:59 → MICUSO 11:20 → EDBEDREQTM 11:38 → EDBEDREQ 11:38 → 7WST 03-02 05:06
PROVIDERS: ADMIT Internal Medicine; ATTEND Internal Medicine
PROC: 5A09357 Assistance with Respiratory Ventilation, Less than 24 Consecutive Hours, Continuous Positive Airway Pressure (ICD-10-PCS; principal; 2023-03-01)
DX: I11.0 Hypertensive heart disease with heart failure (principal); I50.43 Acute on chronic combined systolic (congestive) and diastolic (congestive) heart failure; J96.01 Acute respiratory failure with hypoxia; R65.11 Systemic inflammatory response syndrome (SIRS) of non-infectious origin with acute organ dysfunction; E87.1 Hypo-osmolality and hyponatremia; R18.8 Other ascites; I31.39 Other pericardial effusion (noninflammatory); C81.90 Hodgkin lymphoma, unspecified, unspecified site; J91.8 Pleural effusion in other conditions classified elsewhere; E11.9 Type 2 diabetes mellitus without complications; I16.0 Hypertensive urgency; Z20.822 Contact with and (suspected) exposure to COVID-19; J45.909 Unspecified asthma, uncomplicated; I27.20 Pulmonary hypertension, unspecified; I08.0 Rheumatic disorders of both mitral and aortic valves; I42.9 Cardiomyopathy, unspecified; E78.5 Hyperlipidemia, unspecified; E78.00 Pure hypercholesterolemia, unspecified; N50.89 Other specified disorders of the male genital organs; Z92.21 Personal history of antineoplastic chemotherapy; Z90.81 Acquired absence of spleen; Z86.16 Personal history of COVID-19; Z79.899 Other long term (current) drug therapy
CPT/HCPCS: 36415; 36600; 71045; 71275; 76870; 80048; 80053; 80061; 80202; 80305; 81003; 82375; 82550; 82553; 82805; 82962; 83036; 83605; 83880; 84145; 84439; 84443; 84484; 85025; 85379; 87426; 93005; 93306; 93970; 93976; 94640; 94644; 94660; 99291; C1893; C9803; J0456; J0696; J1650; J1815; J1940; J2543; J2930; J3370; J3475; J3490; J7060